=== PATIENT | female | born 1955 | race Caucasian/White ===

== ENCOUNTER 2020-03-22 06:52 | Outpatient (NON) | payer MEDICARE, SELFPAY ==
[2020-03-23 00:37] LABS: SARS-CoV-2 RNA PCR Positive
== END 2020-03-22 06:53 ==
PROVIDERS: PCP Family Medicine; Visit Provider Family Medicine
DX: U07.1 COVID-19 (principal)
CPT/HCPCS: C9803; U0003; U0005

== ENCOUNTER 2021-03-27 10:37 | Outpatient (CLI) | payer MEDICARE, OTHER, SELFPAY ==
[2021-03-27 17:04] LABS: Anion Gap 7 mmol/L (8-16); Blood Urea Nitrogen 31 mg/dL (7-17); Calcium 9.2 mg/dL (8.4-10.2); Carbon Dioxide 26 mmol/L (22-30); Chloride 104 mmol/L (98-107); Estimated Glomerular Filt Rate 41; Glucose 103 mg/dL (65-110); Potassium 4.5 mmol/L (3.4-5.0); Sodium 137 mmol/L (137-145)
[2021-03-27 17:22] LABS: Free T4 Free Thyroxine 2.64 ng/mL (0.78-2.19)
[2021-03-27 17:35] LABS: Thyroid Stimulating Hormone 0.364 uIU/mL (0.465-4.680)
== END 2021-03-27 10:38 | disposition home or self-care (01) ==
PROVIDERS: PCP Family Medicine; Visit Provider Internal Medicine Endocrinology, Diabetes & Metabolism
DX: E03.9 Hypothyroidism, unspecified (principal); E11.65 Type 2 diabetes mellitus with hyperglycemia; Z79.4 Long term (current) use of insulin
CPT/HCPCS: 36415; 80048; 84439; 84443

== ENCOUNTER → 2024-01-21 10:16 | Outpatient (CLI) | payer OTHER, MEDICARE, SELFPAY ==
--- NOTE | ~2024-01-21 | XR_ITS ---
Cervical Spine: AP, lateral, open-mouth views Clinical History: Pain Findings: The normal lordotic curve is maintained. No fracture or subluxation. There is advanced dege nerative disc narrowing at C5-C6. There is moderate degenerative disc narrowing at C3-C4 and C4-C5. T here is mild facet arthropathy throughout the cervical spine. Pre-vertebral soft tissues are unremark able. Impression: Moderate degenerative spondylosis overall, as detailed above. Reviewed, dictated and finalized at location . [employer] TECHNICAL OFFICER Impression: Moderate degenerative spondylosis overall, as detailed above.
== END ==
PROVIDERS: PCP Nurse Practitioner Family; Visit Provider Nurse Practitioner Family
DX: M47.812 Spondylosis without myelopathy or radiculopathy, cervical region (principal)
CPT/HCPCS: 72040

== ENCOUNTER 2024-10-26 02:26 | Day surgery (SDC) | payer OTHER, MEDICARE, SELFPAY ==
[2024-10-14 09:13] VITALS: BMI 46.3
--- OUTSIDE RECORDS SUMMARY | 2024-10-26 02:28 | XMS_ITS | Clinical Summary ---
Author Organization [facility] Address [address] [place] [address] Care Team Providers Care Commissary Assistant Name Role Phone Jorge Alberto Nair MD Unavailable Unavailable Jose Womack MD Primary Care Provider [phone] Allergies No known active allergies Medications atorvastatin 40 MG tablet Take 1 tablet by mouth daily. 5 Active enalapril 20 MG tablet Take 1 tablet by mouth daily. 5 Active metFORMIN 500 MG tablet Take 1 tablet by mouth daily. 5 Active sertraline 100 MG tablet Take 1.5 tablets by mouth daily. 5 Active vitamin B-12 100 MCG tablet Take 1 tablet by mouth daily. 5 Active levothyroxine 150 MCG tablet Take 1 tablet (150 mcg total) by mouth daily. 6 Active ondansetron 4 MG disintegrating tabletIndications:R ight renal stone Take 1 tablet (4 mg total) by mouth every 8 (eight) hours as needed for Nausea. 20 tablet 1 Active LANTUS SOLOSTAR 100 UNIT/ML injection (PEN) Inject 1 Units into the skin daily. 1 Active Active Problems Problem Noted Date Diagnosed Date Rotator cuff tendinitis, left 07/24/2022 Bilateral knee pain 05/08/2022 Essential hypertension Dyslipidemia Resolved Problems Problem Noted Date Diagnosed Date Resolved Date Hypothyroidism 11/30/2015 Diabetes (CMS/HCC [facility]/HCC) 1 Family History Medical History Relation Comments Cancer Paternal Grandfather Diabetes Paternal Grandfather Cancer Paternal Grandmother Breast Cancer Sister Relation Status Comments Paternal Grandfather Paternal Grandmother Sister Social History Tobacco Use Types Packs/Day Years Used Date Smoking Tobacco: Never Smokeless Tobacco: Never Tobacco Cessation:Counseling Given: No Alcohol Use Standard Drinks/Week Comments Yes 0 (1 standard drink = 0.6 oz pur e alcohol) occasionally PHQ-2 Answer Date Recorded PHQ-2 Score - If the patient scores above 3, please move on to questions 3-9 0 10/21/2020 Comments No Sex and Gender Information Value Date Recorded Sex Assigned at Not on file Legal Sex Female 2:49 AM CDT Gender Identity Not on file Sexual Orientation Not on file Occupation Industry Job Start Date Job End Date Retired Not on file Not on file Not on file Last Filed Vital Signs Vital Sign Reading Time Taken Comments Blood Pressure 152/79 01/03/2024 1:41 PM MAINTENANCE SCHEDULER Pulse 69 01/03/2024 1:41 PM MAINTENANCE SCHEDULER Temperature 36.1 C (97 F) 01/03/2024 1:41 PM MAINTENANCE SCHEDULER Respiratory Rate 18 01/03/2024 1:41 PM MAINTENANCE SCHEDULER Oxygen Saturation 96% 01/03/2024 1:41 PM MAINTENANCE SCHEDULER Inhaled Oxygen Concentration - - Weight 113.4 kg (250 lb) 01/03/2024 1:41 PM MAINTENANCE SCHEDULER Height 154.9 cm (5' 1) 01/03/2024 1:41 PM MAINTENANCE SCHEDULER Body Mass Index 47.24 01/03/2024 1:41 PM MAINTENANCE SCHEDULER Plan of Treatment Health Maintenance Due Date Last Done Comments Colorectal Cancer Screening Colonoscopy (10 Years) 1957 Hepatitis C 1975 DTaP, Tdap and Td Vaccines (1 - Tdap) 02/11/1976 Pneumococcal Vaccine: 50+ Years (1 of 1 - PCV) 2007 Zoster Vaccines (1 of 2) 2007 RSV Immunization or 60+ Years (1 - Risk 60-74 years 1-dose series) 2017 Annual Medicare Wellness Visit 2022 Dexa Scan (General) 2022 COVID-19 Vaccine ( - season) 2023 Mammogram Screening 01/13/2026 01/14/2024, 10/26/2021, 10/25/2020, Additional history exists Meningococcal B Vaccine Aged Out No l onger eligible based on patient's age to complete this topic Meningococcal Vaccine Aged Out No lizzie duncan eligible based on patient's age to complete this topic RSV Immunizations Under 20 Months Aged Out No longer eligible based on patient's age to complete this topic Procedures Procedure Name Priority Date/Time Associated Diagnosis Comments MG SCREENING W ARTEM ROMEL DIGI Routine 01/14/2024 1:09 PM MAINTENANCE SCHEDULER Encounter for screening mammogram for malignant neoplasm of breast from Last 3 Months or Most Recently Relevant to Health Maintenance Results * MG SCREENING W ARTEM ROMEL DIGI (01/14/2024 1:09 PM MAINTENANCE SCHEDULER) Anatomical Region Laterality Modality Breast Bilateral Mammography 01/14/2024 3:45 PM MAINTENANCE SCHEDULER Impressions 01/14/2024 3:50 PM MAINTENANCE SCHEDULER ===== IMPRESSION: ===== 1. Stable mammographic appearance with no new findings to suggest malignancy in either breast. Assessment: ACR BI-RADS 2 - BENIGN FINDING(S) Recommendation: 1:Routine Screening Bilateral Comments: Ordered By: JOSE WOMACK Interpreted By: Betty Graham, 01/14/2024 3:45 PM Narrative 01/14/2024 3:50 PM MAINTENANCE SCHEDULER [facility] [address] [place] [address] EXAMINATION: Digital bilateral screening mammogram with 3-D tomosynthesis EXAM DATE/TIME: 01/14/2024 12:19 PM REASON FOR EXAM: yearly exam Breast carcinoma in sister at age 45. COMPARISON: 10/25/2020. 10/26/2021 Technique: Digital screening mammography of both breasts was performed in addition to 3-D Tomosynthesis technique. This study was read with the assistance of a computer-aided detection system. Tissue density: There are scattered areas of fibroglandular density. Findings: There is no new focal asymmetry, dominant mass lesion, area of skin thickening, or cluster of suspicious appearing calcifications in either breast to suggest malignancy. us Jose Womack MD MAMMO Final Resul t from Last 3 Months or Most Recently Relevant to Health Maintenance Insurance [facility] Care Teams Commissary Assistant Relationship Specialty Start Date End Date Jose Womack MD PCP - General FAMILY PRACTICE 07/20/15 Jorge Alberto Nair MD [place] Nail Technician CARDIOVASCULAR DISEASE 07/20/15
--- OUTSIDE RECORDS SUMMARY | 2024-10-26 02:28 | XMS_ITS | Encounter Summary ---
Author Organization [facility] Address [address] [place] [address] Care Team Providers Care Assistant Professor Of Business Name Role Phone Jorge Alberto Nair MD Unavailable Unavailable Ronen Womack MD Primary Care Provider [phone] Encounter Details Date Type Department Care Team (Late st Contact Info) Description 11/29/2015 Abstract [facility] AT [address] [id number] Ed Valles [place] Social History Tobacco Use Types Packs/Day Years Used Date Smoking Tobacco: Never Smokeless Tobacco: Never Alcohol Use Standard Drinks/Week Comments Yes 0 (1 standard drink = 0.6 oz pur e alcohol) occasionally Comments Unknown Sex and Gender Information Value Date Recorded Sex Assigned at Not on file Legal Sex Female 2:49 AM CDT Gender Identity Not on file Sexual Orientation Not on file Occupation Industry Job Start Date Job End Date Retired Not on file Not on file Not on file documented as of this encounter Plan of Treatment Not on file documented as of this encounter Procedures Procedure Name Priority Date/Time Associated Diagnosis Comments COMPREHENSIVE METABOLIC PANEL Routine 10/01/2015 LIPID PANEL Routine 10/01/2015 HEMOGLOBIN, GLYCOSYLATED Routine 10/01/2015 THYROID STIM HORMONE TSH Routine 10/01/2015 documented in this encounter Results * THYROID STIM HORMONE, TSH (10/01/2015) TSH 13.87 10/01/2015 us [facility] Final Result * HEMOGLOBIN, GLYCATED (10/01/2015) HGB A1C 8.2 10/01/2015 us Doc [facility] Final Result * COMPREHENSIVE METABOLIC PANEL (10/01/2015) SODIUM S/P/B 141 POTASSIUM S/P/B 5.0 CO2 29 CHLORIDE S/P/B 103 GLUCOSE 141 CALCIUM S/P/B 9.9 BUN 25 CREATININE S/P/B 0.92 EGFR AFR. AMER. 80 EGFR NON-AFR. AMER. 69 ALKALINE PHOSPHATASE S/P/B 81 ALT 22 AST 17 BILIRUBIN TOTAL S/P/B 0.7 ALBUMIN S/P/B 4.0 3.5 - 5.0 TOTAL PROTEIN S/P/B 7.1 GLOBULIN 3.1 10/01/2015 us Doc [facility] Final Result * LIPID PANEL (10/01/2015) CHOLESTEROL 197 HDL 47 TRIGLYCERIDES 132 NON HDL CHOLESTEROL 150 LDL (CALCULATED) 124 10/01/2015 [facility] Final Result documented in this encounter Visit Diagnoses Not on filedocumented in this encounter Care Teams Assistant Professor Of Business Relationship Specialty Start Date End Date Ronen Womack MD PCP - General FAMILY PRACTICE 07/20/15 Jorge Alberto Nair MD [place] Industrial Analyst CARDIOVASCULAR DISEASE 07/20/15 documented as of this encounter
--- OUTSIDE RECORDS SUMMARY | 2024-10-26 02:28 | XMS_ITS | Encounter Summary ---
Author Organization [facility] Address [facility] [place] [address] Care Team Providers Care Senior Recruitment Consultant Name Role Phone Jorge Alberto Nair MD Unavailable Unavailable Ronen Womack MD Primary Care Provider [phone] Encounter Details Date Type Department Care Team (Late st Contact Info) Description 03/19/2017 Abstract [facility] CONVERSION [address] [place] [address] , Sadia Melendez MD Social History Tobacco Use Types Packs/Day Years [...] on file documented as of this encounter Visit Diagnoses Not on filedocumented in this encounter Care Teams Senior Recruitment Consultant Relationship Specialty Start Date End Date Ronen Womack MD PCP - General FAMILY PRACTICE 07/20/15 Jorge Alberto Nair MD [place] Sanitation Worker CARDIOVASCULAR DISEASE 07/20/15 documented as of this encounter
[2024-10-26 08:34] VITALS: BP 155/98; PULSE 69; RESP 18; TEMP 36.4; O2SAT 99
--- NOTE | 2024-10-26 08:35 | WPDANESEPPF ---
Anes - Initial Pre Proc Eval Procedure: Operation Date: 10/26/24 10:00 Proposed Procedures p Screening Colonoscopy - Tj Cortes MD Date/Time: 10/26/24 08:35 Surgeon: Tj Cortes MD Pre Op Diagnosis: Encounter for screening for malignant neoplasm of Patient Data Age: 69 Gender: F Height: 1.55 m Weight: 117.9 kg Last Vital Signs Temp 36.4 C L 10/26/24 08:34 Pulse 69 10/26/24 08:34 Resp 18 10/26/24 08:34 BP 155/98 H 10/26/24 08:34 Pulse Ox 99 10/26/24 08:34 O2 Del Method Room Air 10/26/24 08:34 Allergies Allergy/AdvReac Type Severity Reaction Status Date / Time No Known Allergies Allergy Verified 10/14/24 09:06 Home Medications ?Medication ?Instructions ?Recorded ?Confirmed ?Type vitamin B comp and C no.3 15 mg-10 1 cap PO DAILY 90 days #90 caps 03/01/22 10/26/24 Rx mg-50 mg-5 mg-300 mg capsule fluticasone propionate 50 1 spray intranasal BID #48 grams 04/23/22 10/26/24 Rx mcg/actuation nasal spray,suspension (Flonase Allergy Relief) glucagon 1 mg/0.2 mL subcutaneous 1 mg (0.2 mL) subcut ONCE #0.4 mL 06/07/22 10/14/24 Rx auto-injector (Gvoke HypoPen 2-Pack) lancets 30 gauge (Mobile Lancets) #200 ea 06/07/22 10/14/24 Rx blood-glucose meter (FreeStyle #1 ea 09/10/22 10/14/24 Rx Lite Meter kit) famotidine 20 mg tablet 20 mg PO DAILY PRN indigestion 11/07/22 10/26/24 Rx #90 tabs hyoscyamine sulfate 0.125 mg 0.125 mg PO QID PRN abdominal 11/07/22 10/14/24 Rx tablet (Levsin) pain #20 tabs enalapril maleate 20 mg tablet 20 mg PO DAILY #90 tabs 04/17/23 10/26/24 Rx amlodipine 2.5 mg tablet 2.5 mg PO . q.a.m. #90 tabs 03/25/24 09/08/25 Rx levothyroxine 125 mcg tablet 125 mcg PO . q.a.m. #90 tabs 12/11/23 10/26/24 Rx cyclobenzaprine 10 mg tablet 5 - 10 mg (0.5 - 1 x 10 mg) PO BID 01/21/24 10/14/24 Rx PRN muscle spasm #60 tabs meloxicam 15 mg tablet 15 mg PO DAILY PRN pain #30 tabs 03/23/24 10/14/24 Rx blood sugar diagnostic (FreeStyle #100 ea 06/02/24 10/14/24 Rx Lite Strips) dapagliflozin propanediol 10 mg 10 mg PO QAM 90 days #90 tabs 06/02/24 10/26/24 Rx tablet (Farxiga) semaglutide 2 mg/dose (8 mg/3 mL) 2 mg (0.75 mL) subcut WEEKLY 90 06/02/24 10/26/24 Rx subcutaneous pen injector (Ozempic) days #9 mL cholecalciferol (vitamin D3) 1,250 50,000 unit PO WEEKLY #12 caps 07/09/24 10/26/24 Rx mcg (50,000 unit) capsule cyanocobalamin (vitamin B-12) 1,000 mcg PO DAILY 07/09/24 10/26/24 History 1,000 mcg tablet atorvastatin 40 mg tablet 40 mg PO DAILY #90 tabs 09/02/24 10/26/24 Rx oxybutynin chloride 5 mg tablet 5 mg PO DAILY 10/14/24 10/26/24 History Patient hx anesthesia problems: none Family hx anesthesia problems: none Results Review: All pre-operative results and documents have been reviewed as part of the pre-operative evaluation. [facility] Past Medical History Medical History Morbid obesity with BMI of 45.0-49.9, adult Right shoulder pain Cervicalgia SBE (subacute bacterial endocarditis) prophylaxis candidate antibiotics for dental work with total knee replacement. Polycythemia (10/25/23) hemoglobin 17.0 with hematocrit 52.8 on 10/25/2023. Hemoglobin 17.2 on 06/27/2024. Mixed irritable bowel syndrome At moderate risk for fall Welcome to Medicare preventive visit Seasonal allergic rhinitis Encounter for hepatitis C screening test for low risk patient (03/13/22) hepatitis-C screening was negative on 03/13/2022. Umbilical hernia without obstruction and without gangrene Screening for breast cancer mammogram normal on 10/26/2021 with recheck in 1 year. Mammogram unchanged 01/14/2024 with recheck in 1 year. B12 deficiency level low at 343 with goal greater than 400 on 02/24/2022. Level normal at 571 with hemoglobin 15.3 on 10/27/2022. Level low at 264 on 10/25/2023. Level low at 217 with folic acid 5.7 on 06/27/2024. Vitamin D deficiency Level low at 13 with goal greater than 30 on 02/24/2022. Level normal at 33 on 10/27/2022. Level low at 29 on 10/25/2023. Level low at 26 on 06/27/2024. Colon cancer screening Morbid obesity with BMI of 40.0-44.9, adult Bilateral cataracts (~03/08/21) Screening for diabetic retinopathy no diabetic retinopathy or macular edema on 03/08/2021. No retinopathy on 05/04/2023. No retinopathy on 05/09/2024. BMI greater than 40 Cataract Controlled diabetes mellitus with hyperglycemia, with long-term current use of insulin glucose 97 on 04/17/2021. Fasting glucose 121 with hemoglobin A1c 6.4 and urine microalbumin ratio of 5 on 10/27/2022. Glucose 111 on 10/25/2023. Fasting glucose 110 on 06/27/2024 with GFR 45. Hemoglobin A1c 7.4 on 06/02/2024. Renal cell carcinoma of left kidney (09/03/20) 2.3 x 2.3 x 2.5 cm on ultrasound 09/16/2020, treated with partial nephrectomy 12/23/2020.CT of the abdomen and pelvis and chest x-ray were negative for metastatic or residual disease on 12/27/2022. Chronic kidney disease (CKD) stage G3a/A1, moderately decreased glomerular filtration rate (GFR) between 45-59 mL/min/1.73 square meter and albuminuria creatinine ratio less than 30 mg/g BUN 22 with creatinine 1.24 with GFR 46 on 04/17/2021. BUN 18, creatinine 1.17 with GFR 52 and urine microalbumin ratio of 5 on 10/27/2022. BUN 13, creatinine 1.17 with GFR 51 on 10/25/2023. BUN 21, creatinine 1.31 with GFR 45 on 06/27/2024. Chronic kidney disease (CKD) stage G3b/A1, moderately decreased glomerular filtration rate (GFR) between 30-44 mL/min/1.73 square meter and albuminuria creatinine ratio less than 30 mg/g (~09/03/20) labs from 09/03/2020 with BUN 21, creatinine 1.78 and GFR 30, decreased from 50 on 10/11/2018 Left renal mass (09/03/20) 2.3 x 2.3 x 2.5 mass left mid polar area on ultrasound 09/16/2020 Right distal ureteral calculus (~09/03/20) COVID-19 (03/21/20) Acute sinusitis, unspecified Cough Vitamin B12 deficiency anemia level low at 259 with goal greater than 400 with hemoglobin 15.4 on 04/17/2021 Hypothyroidism, unspecified Renal insufficiency Type 2 diabetes mellitus without complication, without long-term current use of insulin glucose 247 on 09/03/20 Surgical History Surgical History History of kidney surgery Status post laser cataract surgery of both eyes Family History Family History Mother Family history of cardiovascular disease Family history of arthritis Family history of kidney disease Grandparent Family history of malignant neoplasm Sibling Family history of kidney disease, Onset Age: 51 Family history of malignant neoplasm of breast Social History Social History Smoking status: Never smoker Second hand tobacco smoke exposure: No Alcohol intake: current Alcohol use details: Occasionally Substance use: never Substance use type: does not use Lack of Transportation: No Lack of Food: Never True Current Housing: I Have Housing Concerned About Future Housing: No Difficulty Paying Gas/Electric Bills: No Difficulty Paying for Meds: No Currently Unemployed: YES Education: High School Diploma/GED Difficulty w/ Childcare or Family Care: No Living arrangements: with family Anes - Eval Final PreProcedure Day of Procedure 10/26/24 08:35 Patient weight: morbidly obese Heart: regular rate and rhythm Lungs: clear to auscultation Airway: Mallampati scale class II Neurological: alert and oriented Last oral intake: >/= 8 hours ASA classification: III Emergent: no Anesthetic plan: proceed Anesthesia type and monitoring: general GIVS and standard monitoring Results Review: All pre-operative results and documents have been reviewed as part of the pre-operative evaluation. Informed Consent: The patient's anesthetic plan and its attendant risks and benefits were discussed with the patient/family/POA. Questions were solicited and answers provided to the satisfaction of the patient/family/POA.
[2024-10-26] MEDS: LACTATED RINGERS 1,000 ML 150 ML IV CONT (08:58)
--- NOTE | 2024-10-26 09:40 | PM.HPGS ---
History of Present Illness History of Present Illness Consent: Risks, benefits, and alternatives have been discussed and questions answered. Patient agrees to proceed with procedure. Chief complaint: Encounter for screening for malignant neoplasm of Narrative: Mattie Agarwal is a 69 year old female here for screening colonoscopy Review of Systems Review of Systems: All systems reviewed & are unremarkable except as noted in HPI and below PMFSH Past Medical History Medical History Morbid obesity with BMI of 45.0-49.9, adult Right shoulder pain Cervicalgia SBE (subacute bacterial endocarditis) prophylaxis candidate antibiotics for dental work with total knee replacement. Polycythemia (10/25/23) hemoglobin 17.0 with hematocrit 52.8 on 10/25/2023. Hemoglobin 17.2 on 06/27/2024. Mixed irritable bowel syndrome At moderate risk for fall Welcome to Medicare preventive visit Seasonal allergic rhinitis Encounter for hepatitis C screening test for low risk patient (03/13/22) hepatitis-C screening was negative on 03/13/2022. Umbilical hernia without obstruction and without gangrene Screening for breast cancer mammogram normal on 10/26/2021 with recheck in 1 year. Mammogram unchanged 01/14/2024 with recheck in 1 year. B12 deficiency level low at 343 with goal greater than 400 on 02/24/2022. Level normal at 571 with hemoglobin 15.3 on 10/27/2022. Level low at 264 on 10/25/2023. Level low at 217 with folic acid 5.7 on 06/27/2024. Vitamin D deficiency Level low at 13 with goal greater than 30 on 02/24/2022. Level normal at 33 on 10/27/2022. Level low at 29 on 10/25/2023. Level low at 26 on 06/27/2024. Colon cancer screening Morbid obesity with BMI of 40.0-44.9, adult Bilateral cataracts (~03/08/21) Screening for diabetic retinopathy no diabetic retinopathy or macular edema on 03/08/2021. No retinopathy on 05/04/2023. No retinopathy on 05/09/2024. BMI greater than 40 Cataract Controlled diabetes mellitus with hyperglycemia, with long-term current use of insulin glucose 97 on 04/17/2021. Fasting glucose 121 with hemoglobin A1c 6.4 and urine microalbumin ratio of 5 on 10/27/2022. Glucose 111 on 10/25/2023. Fasting glucose 110 on 06/27/2024 with GFR 45. Hemoglobin A1c 7.4 on 06/02/2024. Renal cell carcinoma of left kidney (09/03/20) 2.3 x 2.3 x 2.5 cm on ultrasound 09/16/2020, treated with partial nephrectomy 12/23/2020.CT of the abdomen and pelvis and chest x-ray were negative for metastatic or residual disease on 12/27/2022. Chronic kidney disease (CKD) stage G3a/A1, moderately decreased glomerular filtration rate (GFR) between 45-59 mL/min/1.73 square meter and albuminuria creatinine ratio less than 30 mg/g BUN 22 with creatinine 1.24 with GFR 46 on 04/17/2021. BUN 18, creatinine 1.17 with GFR 52 and urine microalbumin ratio of 5 on 10/27/2022. BUN 13, creatinine 1.17 with GFR 51 on 10/25/2023. BUN 21, creatinine 1.31 with GFR 45 on 06/27/2024. Chronic kidney disease (CKD) stage G3b/A1, moderately decreased glomerular filtration rate (GFR) between 30-44 mL/min/1.73 square meter and albuminuria creatinine ratio less than 30 mg/g (~09/03/20) labs from 09/03/2020 with BUN 21, creatinine 1.78 and GFR 30, decreased from 50 on 10/11/2018 Left renal mass (09/03/20) 2.3 x 2.3 x 2.5 mass left mid polar area on ultrasound 09/16/2020 Right distal ureteral calculus (~09/03/20) COVID-19 (03/21/20) Acute sinusitis, unspecified Cough Vitamin B12 deficiency anemia level low at 259 with goal greater than 400 with hemoglobin 15.4 on 04/17/2021 Hypothyroidism, unspecified Renal insufficiency Type 2 diabetes mellitus without complication, without long-term current use of insulin glucose 247 on 09/03/20 Surgical History Surgical History History of kidney surgery Status post laser cataract surgery of both eyes Family History Family History Mother Family history of cardiovascular disease Family history of arthritis Family history of kidney disease Grandparent Family history of malignant neoplasm Sibling Family history of kidney disease, Onset Age: 51 Family history of malignant neoplasm of breast Social History Social History Smoking status: Never smoker Second hand tobacco smoke exposure: No Alcohol intake: current Alcohol use details: Occasionally Substance use: never Substance use type: does not use Lack of Transportation: No Lack of Food: Never True Current Housing: I Have Housing Concerned About Future Housing: No Difficulty Paying Gas/Electric Bills: No Difficulty Paying for Meds: No Currently Unemployed: YES Education: High School Diploma/GED Difficulty w/ Childcare or Family Care: No Living arrangements: with family Meds Home Medications and Allergies Home Medications ?Medication ?Instructions ?Recorded ?Confirmed ?Type vitamin B comp and C no.3 15 mg-10 1 cap PO DAILY 90 days #90 caps 03/01/22 10/26/24 Rx mg-50 mg-5 mg-300 mg capsule fluticasone propionate 50 1 spray intranasal BID #48 grams 04/23/22 10/26/24 Rx mcg/actuation nasal spray,suspension (Flonase Allergy Relief) glucagon 1 mg/0.2 mL subcutaneous 1 mg (0.2 mL) subcut ONCE #0.4 mL 06/07/22 10/14/24 Rx auto-injector (Gvoke HypoPen 2-Pack) lancets 30 gauge (Mobile Lancets) #200 ea 06/07/22 10/14/24 Rx blood-glucose meter (FreeStyle #1 ea 09/10/22 10/14/24 Rx Lite Meter kit) famotidine 20 mg tablet 20 mg PO DAILY PRN indigestion 11/07/22 10/26/24 Rx #90 tabs hyoscyamine sulfate 0.125 mg 0.125 mg PO QID PRN abdominal 11/07/22 10/14/24 Rx tablet (Levsin) pain #20 tabs enalapril maleate 20 mg tablet 20 mg PO DAILY #90 tabs 04/17/23 10/26/24 Rx amlodipine 2.5 mg tablet 2.5 mg PO . q.a.m. #90 tabs 05/13/23 10/26/24 Rx levothyroxine 125 mcg tablet 125 mcg PO . q.a.m. #90 tabs 12/11/23 10/26/24 Rx cyclobenzaprine 10 mg tablet 5 - 10 mg (0.5 - 1 x 10 mg) PO BID 01/21/24 10/14/24 Rx PRN muscle spasm #60 tabs meloxicam 15 mg tablet 15 mg PO DAILY PRN pain #30 tabs 03/23/24 10/14/24 Rx blood sugar diagnostic (FreeStyle #100 ea 06/02/24 10/14/24 Rx Lite Strips) dapagliflozin propanediol 10 mg 10 mg PO QAM 90 days #90 tabs 06/02/24 10/26/24 Rx tablet (Farxiga) semaglutide 2 mg/dose (8 mg/3 mL) 2 mg (0.75 mL) subcut WEEKLY 90 06/02/24 10/26/24 Rx subcutaneous pen injector (Ozempic) days #9 mL cholecalciferol (vitamin D3) 1,250 50,000 unit PO WEEKLY #12 caps 07/09/24 10/26/24 Rx mcg (50,000 unit) capsule cyanocobalamin (vitamin B-12) 1,000 mcg PO DAILY 07/09/24 10/26/24 History 1,000 mcg tablet atorvastatin 40 mg tablet 40 mg PO DAILY #90 tabs 09/02/24 10/26/24 Rx oxybutynin chloride 5 mg tablet 5 mg PO DAILY 10/14/24 10/26/24 History Allergies Allergy/AdvReac Type Severity Reaction Status Date / Time No Known Allergies Allergy Verified 10/14/24 09:06 Vital Signs Vital Signs - 24 hr 10/26/24 08:34 Temperature 97.5 F L Pulse Rate 69 Respiratory Rate 18 Blood Pressure 155/98 H Pulse Oximetry 99 Oxygen Delivery Room Air Exam Const: General: comfortable and no acute distress Nutritional Appearance: obese HENMT: Face/Nose/Sinus: Normal nares present Eyes: General: appearance normal, both eyes and all related structures Neck: Neck: no JVD Resp: Auscultation: clear to auscultation bilaterally Cardio: Rate: regular rate Rhythm: regular rhythm GI: Inspection: non-distended GI Palp: Yes Soft to palpation Skin: General skin exam: normal color Neuro: Speech: normal speech Extrem: General: normal to inspection Psych: Mental Status: mental status grossly normal Assessment and Plan Assessment and plan (1) Colon cancer screening: Code(s): Z12.11 - Encounter for screening for malignant neoplasm of colon Status: Acute Assessment and Plan: colonoscopy
--- NOTE | 2024-10-26 09:55 | S_PTH ---
PATIENT: Mattie Agarwal LOC: [facility]#:[id number] AGE/SX: 69/F ROOM: RE10/26/[address]: Tj Cortes MD : 1955 BED: DIS: 10/26/2024 SPEC #: [id number] RECD: 10/26/24 10:09 STATUS: RENÉE HAMMOND #: [id number] JUAN: 10/26/24 09:[address]: Tj Cortes DEPT: [facility] Surgical RECD BY: Doni Minaya ENTERED: 10/26/24 10:10 SP TYPE: Surgical OTHR DR: Ronen Womack MD Tissues: A - Colon Polypectomy Procedures: Hematoxylin and Eosin Stain Gross and Microscopic Level 4
[2024-10-26 10:00] VITALS: BP 128/63; PULSE 67; RESP 16; O2SAT 99
[2024-10-26 10:10] VITALS: BP 123/73; PULSE 70; RESP 20; O2SAT 99
[2024-10-26 10:20] VITALS: BP 145/71; PULSE 71; RESP 20; O2SAT 96
--- NOTE | 2024-10-26 10:40 | SUR.PHASEII ---
1015 Pt's right eye appears to be red and tearful. Pt states she suffers from dry eye and doesn't feel as though her eye is scratched, only itchy. She has eye drops she will use at home. Pt encouraged to reach out to PCP if worsens.
== END 2024-10-26 10:36 | disposition home or self-care (01) ==
PROVIDERS: PCP Family Medicine; Referring Provider Family Medicine; Visit Provider Internal Medicine Gastroenterology
PROC: 0DJD8ZZ Inspection of Lower Intestinal Tract, Via Natural or Artificial Opening Endoscopic (ICD-10-PCS; CPT 45378; principal; 2024-10-26 10:00)
DX: Z12.11 Encounter for screening for malignant neoplasm of colon (principal); D12.3 Benign neoplasm of transverse colon; K64.8 Other hemorrhoids; I12.9 Hypertensive chronic kidney disease with stage 1 through stage 4 chronic kidney disease, or unspecified chronic kidney disease; E11.22 Type 2 diabetes mellitus with diabetic chronic kidney disease; N18.31 Chronic kidney disease, stage 3a; E66.01 Morbid (severe) obesity due to excess calories; Z68.42 Body mass index [BMI] 45.0-49.9, adult
CPT/HCPCS: 45380; 82948; 88305; J2003; J2704; J7120